=== PATIENT | male | born 1970 | race Caucasian/White ===

== ENCOUNTER 2024-07-25 14:13 | Emergency (ER) | payer MEDICAID ==
[~2024-07-25] VITALS: Ht 172.7 cm; Wt 79.5 kg
[2024-07-25] MEDS: methylPREDNISolone acetate 80mg/ml inj**IM only IM ONE (15:50)
[2024-07-25] MEDS: LIDOcaine 1% W/epiNEPHrine 1:100,000 20ml vial SQ ONE (15:50)
[2024-07-25 16:26] LABS: FREE T4 (FREE THYROXINE) 0.63 NG/DL (0.73-1.40); THYROID STIMULATING HORMONE 1.27 ulU/ml (0.34-4.50)
[2024-07-25] MEDS ORDERED: ERYT1OIN6 EACHEYE (16:52)
[2024-07-25 18:00] VITALS: BP 127/77; PULSE 78; RESP 18; TEMP 98.1; O2SAT 97
== END 2024-07-25 18:01 | disposition home or self-care (01) ==
LOC: ER 14:14
DX: H00.014 Hordeolum externum left upper eyelid (principal); H00.011 Hordeolum externum right upper eyelid; E03.8 Other specified hypothyroidism
CPT/HCPCS: 36415; 84439; 84443; 99283; A6590